=== PATIENT | male | born 1985 | race Two or more races ===

== ENCOUNTER 2022-10-25 00:22 | Emergency (ER) | payer OTHER ==
[~2022-10-25] VITALS: Ht 180.3 cm; Wt 122.5 kg
[2022-10-25] MEDS ORDERED: COZAAR100 MG PO ×2 (00:27→06:42)
[2022-10-25] MEDS ORDERED: CARVEDILOL ER40 MG (00:28)
[2022-10-25] MEDS ORDERED: APRESOLINE 10MG10 MG PO ×2 (00:28→06:42)
[2022-10-25] MEDS ORDERED: CARVEDILOL25 MG PO (06:42)
== END 2022-10-25 06:51 | disposition home or self-care (01) ==
LOC: ER 00:22
DX: I10 Essential (primary) hypertension (principal); G44.89 Other headache syndrome